=== PATIENT | male | born 1970 | race Caucasian/White ===

== ENCOUNTER 2021-02-13 15:06 | Inpatient (IN) | payer MEDICAID ==
[~2021-02-13] VITALS: Ht 172.7 cm; Wt 69.7 kg
[~2021-02-13 15:06] MED LIST: FLUO-191 PO; OLAN5TAB2 PO
[2021-02-13 20:50] VITALS: BP 107/72
[2021-02-13] MEDS ORDERED: HALOPERIDOL 5 MG TABLET PO PRN (21:30)
[2021-02-14 05:30] VITALS: BP 103/64
[2021-02-14 05:38] LABS: BASOPHILS % (AUTO) 0.4 % (0.0-2.0); EOSINOPHILS % (AUTO) 0.8 % (1.0-6.0); HEMATOCRIT 43.5 % (41-53); HEMOGLOBIN 14.7 g/dL (13.5-17.5); LYMPHOCYTES # (AUTO) 1.1 K/uL (1.0-4.8); LYMPHOCYTES % (AUTO) 15.7 % (22.0-44.0); MEAN CORPUSCULAR HEMOGLOBIN 31.6 pg (26.0-34.0); MEAN CORPUSCULAR HGB CONC 33.7 G/dL (31.0-37.0); MEAN CORPUSCULAR VOLUME 94 fL (80-100); MONOCYTES # (AUTO) 0.4 K/uL (0.1-1.0); MONOCYTES % (AUTO) 5.5 % (2.0-9.0); NEUTROPHILS # (AUTO) 5.5 K/uL (1.8-7.7); NEUTROPHILS % (AUTO) 77.6 % (40.0-70.0); PLATELET COUNT (AUTO) 227 K/uL (150-450); RED BLOOD CELL COUNT(AUTO) 4.63 MIL/uL (4.50-5.90); RED CELL DISTRIBUTION WIDTH 13.5 % (11.5-14.5)
[2021-02-14 06:17] LABS: ANION GAP 12 mmol/L (8-16); CALCIUM, TOTAL 8.4 mg/dL (8.8-10.5); CARBON DIOXIDE 22 mmol/L (22-29); CHLORIDE 102 mmol/L (98-107); CHOL/HDL RATIO 2.8 (4.2-7.3); CHOLESTEROL 138 mg/dL (131-200); CREATININE 0.94 mg/dL (0.60-1.30); GLOMERULAR FILTR. RATE CALC > 60 mL/min (>60); GLUCOSE,RANDOM 93 mg/dL (70-110); HDL CHOLESTEROL 50 mg/dL (40-60); LDL CHOL (CALC.) 77 mg/dL (0-130); POTASSIUM 3.4 mmol/L (3.5-5.1); SODIUM SERUM 136 mmol/L (136-145); THYROID STIMULATING HORMONE 0.77 uIU/mL (0.36-3.74); TRIGLYCERIDES 55 mg/dL (15-150); UREA NITROGEN, BLOOD 9 mg/dL (7-18); URIC ACID 7.2 mg/dL (2.6-7.2)
[2021-02-14] MEDS: GABAPENTIN 300 MG CAPSULE PO SCH ×2 (09:14→16:23)
[2021-02-14] MEDS: OLANZapine 5 MG TABLET PO SCH ×2 (09:14→16:23)
[2021-02-14] MEDS ORDERED: POTASSIUM CHLORIDE 20 MEQ ER TABLET PO ONE (09:15)
[2021-02-14] MEDS: NICOTINE 14 MG/24 HOUR PATCH TD SCH (09:19)
[2021-02-14 09:57] VITALS: BP 101/67
[2021-02-14 16:00] VITALS: BP 112/72
[2021-02-15 06:42] VITALS: BP 112/78
[2021-02-15] MEDS: NICOTINE 14 MG/24 HOUR PATCH TD SCH (08:31)
[2021-02-15 08:32] VITALS: BP 111/74
[2021-02-15] MEDS: OLANZapine 5 MG TABLET PO SCH ×2 (08:35→16:39)
[2021-02-15] MEDS: GABAPENTIN 300 MG CAPSULE PO SCH ×2 (08:35→16:39)
[2021-02-15] MEDS: BuPROPion HCL XL 150 MG ER TABLET PO SCH (11:03)
[2021-02-15 16:00] VITALS: BP 121/78
[2021-02-16 08:51] VITALS: BP 123/61
[2021-02-16] MEDS: GABAPENTIN 300 MG CAPSULE PO SCH ×2 (09:00→17:04)
[2021-02-16] MEDS: OLANZapine 5 MG TABLET PO SCH ×2 (09:00→17:04)
[2021-02-16] MEDS: BuPROPion HCL XL 150 MG ER TABLET PO SCH (09:00)
[2021-02-16] MEDS: NICOTINE 14 MG/24 HOUR PATCH TD SCH (09:08)
[2021-02-16 16:12] VITALS: BP 106/71
[2021-02-17] MEDS: OLANZapine 5 MG TABLET PO SCH ×2 (09:20→16:31)
[2021-02-17] MEDS: BuPROPion HCL XL 150 MG ER TABLET PO SCH (09:20)
[2021-02-17] MEDS: GABAPENTIN 300 MG CAPSULE PO SCH ×2 (09:20→16:31)
[2021-02-17] MEDS: NICOTINE 14 MG/24 HOUR PATCH TD SCH (09:26)
[2021-02-17 10:36] VITALS: BP 92/50
[2021-02-17 16:56] VITALS: BP 104/60
[2021-02-18] MEDS: GABAPENTIN 300 MG CAPSULE PO SCH ×2 (08:45→17:00)
[2021-02-18] MEDS: OLANZapine 5 MG TABLET PO SCH (08:45)
[2021-02-18] MEDS: BuPROPion HCL XL 150 MG ER TABLET PO SCH (08:45)
[2021-02-18] MEDS: NICOTINE 14 MG/24 HOUR PATCH TD SCH (09:00)
[2021-02-18 09:26] VITALS: BP 118/79
[2021-02-18 16:25] VITALS: BP 118/91
[2021-02-18] MEDS: OLANZapine 10 MG TABLET PO SCH (17:00)
[2021-02-19] MEDS: OLANZapine 10 MG TABLET PO SCH ×2 (09:12→16:30)
[2021-02-19] MEDS: BuPROPion HCL XL 150 MG ER TABLET PO SCH (09:12)
[2021-02-19] MEDS: NICOTINE 14 MG/24 HOUR PATCH TD SCH (09:13)
[2021-02-19] MEDS: GABAPENTIN 300 MG CAPSULE PO SCH ×2 (09:17→16:30)
[2021-02-19 10:40] VITALS: BP 132/90
[2021-02-19 16:00] VITALS: BP 99/78
[2021-02-20] MEDS: OLANZapine 10 MG TABLET PO SCH ×2 (09:00→16:28)
[2021-02-20] MEDS: NICOTINE 14 MG/24 HOUR PATCH TD SCH (09:00)
[2021-02-20] MEDS: BuPROPion HCL XL 150 MG ER TABLET PO SCH (09:00)
[2021-02-20] MEDS: GABAPENTIN 300 MG CAPSULE PO SCH ×2 (09:00→16:28)
[2021-02-20 10:22] VITALS: BP 104/64
[2021-02-20 15:04] LABS: COVID AG,FIA SOURCE NASOPHARYNGEAL
[2021-02-20 16:07] VITALS: BP 113/74
[2021-02-20 16:08] VITALS: BP 113/74
[2021-02-21] MEDS: NICOTINE 14 MG/24 HOUR PATCH TD SCH (09:00)
[2021-02-21 09:33] VITALS: BP 92/55
[2021-02-21] MEDS: OLANZapine 10 MG TABLET PO SCH ×2 (09:45→17:18)
[2021-02-21] MEDS: GABAPENTIN 300 MG CAPSULE PO SCH ×2 (09:45→17:18)
[2021-02-21] MEDS: BuPROPion HCL XL 150 MG ER TABLET PO SCH (09:45)
[2021-02-22] MEDS: BuPROPion HCL XL 150 MG ER TABLET PO SCH (08:45)
[2021-02-22] MEDS: GABAPENTIN 300 MG CAPSULE PO SCH ×2 (08:45→16:32)
[2021-02-22] MEDS: OLANZapine 10 MG TABLET PO SCH ×2 (08:45→16:32)
[2021-02-22 08:53] VITALS: BP 102/75
[2021-02-22] MEDS: NICOTINE 14 MG/24 HOUR PATCH TD SCH (09:00)
[2021-02-23] MEDS: BuPROPion HCL XL 150 MG ER TABLET PO SCH (08:39)
[2021-02-23] MEDS: GABAPENTIN 300 MG CAPSULE PO SCH ×2 (08:39→16:26)
[2021-02-23] MEDS: OLANZapine 10 MG TABLET PO SCH ×2 (08:39→16:26)
[2021-02-23] MEDS: NICOTINE 14 MG/24 HOUR PATCH TD SCH (08:43)
[2021-02-23 09:35] VITALS: BP 85/50
[2021-02-23 16:45] VITALS: BP 120/68
[2021-02-24 03:57] VITALS: BP 124/80
[2021-02-24] MEDS ORDERED: NICOTINE 14 MG/24 HOUR PATCH TD PRN (07:45)
[2021-02-24] MEDS: GABAPENTIN 300 MG CAPSULE PO SCH ×2 (08:11→16:34)
[2021-02-24] MEDS: OLANZapine 10 MG TABLET PO SCH ×2 (08:11→16:34)
[2021-02-24] MEDS: BuPROPion HCL XL 150 MG ER TABLET PO SCH (08:11)
[2021-02-24 09:40] VITALS: BP 109/72
[2021-02-24 16:00] VITALS: BP 99/66
[2021-02-25 00:52] VITALS: BP 110/77
[2021-02-25] MEDS: BuPROPion HCL XL 150 MG ER TABLET PO SCH (08:40)
[2021-02-25] MEDS: GABAPENTIN 300 MG CAPSULE PO SCH ×2 (08:40→16:14)
[2021-02-25] MEDS: OLANZapine 10 MG TABLET PO SCH ×2 (08:40→16:14)
[2021-02-25 09:16] VITALS: BP 95/59
[2021-02-25 17:54] VITALS: BP 101/68
[2021-02-26] MEDS: GABAPENTIN 300 MG CAPSULE PO SCH ×2 (08:27→16:28)
[2021-02-26] MEDS: BuPROPion HCL XL 150 MG ER TABLET PO SCH (08:27)
[2021-02-26] MEDS: OLANZapine 10 MG TABLET PO SCH ×2 (08:27→16:29)
[2021-02-26 08:45] VITALS: BP 102/72
[2021-02-26 16:24] VITALS: BP 113/76
[2021-02-27] MEDS: GABAPENTIN 300 MG CAPSULE PO SCH ×2 (09:05→17:28)
[2021-02-27] MEDS: BuPROPion HCL XL 150 MG ER TABLET PO SCH (09:05)
[2021-02-27] MEDS: OLANZapine 10 MG TABLET PO SCH ×2 (09:06→17:28)
[2021-02-27 12:42] VITALS: BP 111/74
[2021-02-27 16:00] VITALS: BP 112/77
[2021-02-27 22:09] LABS: COVID AG,FIA SOURCE NASOPHARYNGEAL
[2021-02-28] MEDS: BuPROPion HCL XL 150 MG ER TABLET PO SCH (10:10)
[2021-02-28] MEDS: GABAPENTIN 300 MG CAPSULE PO SCH ×2 (10:10→16:51)
[2021-02-28] MEDS: OLANZapine 10 MG TABLET PO SCH ×2 (10:10→16:51)
[2021-02-28 10:32] VITALS: BP 118/77
[2021-03-01] MEDS: BuPROPion HCL XL 150 MG ER TABLET PO SCH (08:20)
[2021-03-01] MEDS: OLANZapine 10 MG TABLET PO SCH ×2 (08:20→16:58)
[2021-03-01] MEDS: GABAPENTIN 300 MG CAPSULE PO SCH ×2 (08:20→16:58)
[2021-03-01 10:07] VITALS: BP 107/71
[2021-03-02 08:26] VITALS: BP 116/87
[2021-03-02] MEDS: OLANZapine 10 MG TABLET PO SCH ×2 (09:30→16:20)
[2021-03-02] MEDS: BuPROPion HCL XL 150 MG ER TABLET PO SCH (09:30)
[2021-03-02] MEDS: GABAPENTIN 300 MG CAPSULE PO SCH ×2 (09:30→16:20)
[2021-03-02 16:10] VITALS: BP 101/76
[2021-03-03 07:59] VITALS: BP 102/66
[2021-03-03 08:00] VITALS: BP 102/66
[2021-03-03] MEDS: GABAPENTIN 300 MG CAPSULE PO SCH ×2 (08:04→19:30)
[2021-03-03] MEDS: BuPROPion HCL XL 150 MG ER TABLET PO SCH (08:04)
[2021-03-03] MEDS: OLANZapine 10 MG TABLET PO SCH ×2 (08:04→19:29)
[2021-03-03 16:17] VITALS: BP 110/60
[2021-03-04 08:00] VITALS: BP 91/56
[2021-03-04] MEDS: OLANZapine 10 MG TABLET PO SCH ×2 (10:04→16:31)
[2021-03-04] MEDS: BuPROPion HCL XL 150 MG ER TABLET PO SCH (10:04)
[2021-03-04] MEDS: GABAPENTIN 300 MG CAPSULE PO SCH ×2 (10:05→16:31)
[2021-03-04 16:00] VITALS: BP 115/71
[2021-03-04] MEDS: ZOLPIDEM TARTRATE 10 MG TABLET PO PRN (20:13)
[2021-03-05 08:36] VITALS: BP 112/71
[2021-03-05] MEDS: OLANZapine 10 MG TABLET PO SCH ×2 (10:06→16:04)
[2021-03-05] MEDS: GABAPENTIN 300 MG CAPSULE PO SCH ×2 (10:06→16:04)
[2021-03-05] MEDS: BuPROPion HCL XL 150 MG ER TABLET PO SCH (10:06)
[2021-03-05 16:00] VITALS: BP 103/67
[2021-03-05] MEDS: ZOLPIDEM TARTRATE 10 MG TABLET PO PRN (20:13)
[2021-03-06 02:38] VITALS: BP 105/68
[2021-03-06] MEDS: GABAPENTIN 300 MG CAPSULE PO SCH ×2 (08:32→16:18)
[2021-03-06] MEDS: BuPROPion HCL XL 150 MG ER TABLET PO SCH (08:32)
[2021-03-06] MEDS: OLANZapine 10 MG TABLET PO SCH ×2 (08:32→16:18)
[2021-03-06 08:36] VITALS: BP 122/84
[2021-03-06 15:44] LABS: COVID AG,FIA SOURCE NASOPHARYNGEAL
[2021-03-06 17:00] VITALS: BP 106/73
[2021-03-06] MEDS: LORazepam 2 MG TABLET PO PRN (18:32)
[2021-03-07 09:14] VITALS: BP 93/58
[2021-03-07] MEDS: OLANZapine 10 MG TABLET PO SCH ×2 (10:08→16:58)
[2021-03-07] MEDS: GABAPENTIN 300 MG CAPSULE PO SCH ×2 (10:08→16:58)
[2021-03-07] MEDS: BuPROPion HCL XL 150 MG ER TABLET PO SCH (10:08)
[2021-03-07 16:25] VITALS: BP 103/70
[2021-03-07] MEDS: LORazepam 2 MG TABLET PO PRN (19:29)
[2021-03-08 08:38] VITALS: BP 100/59
[2021-03-08] MEDS: GABAPENTIN 300 MG CAPSULE PO SCH ×2 (08:56→16:14)
[2021-03-08] MEDS: BuPROPion HCL XL 150 MG ER TABLET PO SCH (08:56)
[2021-03-08] MEDS: OLANZapine 10 MG TABLET PO SCH ×2 (08:56→16:14)
[2021-03-08 16:03] VITALS: BP 119/69
[2021-03-09 08:00] VITALS: BP 117/67
[2021-03-09] MEDS: GABAPENTIN 300 MG CAPSULE PO SCH ×2 (08:28→16:43)
[2021-03-09] MEDS: OLANZapine 10 MG TABLET PO SCH ×2 (08:28→16:43)
[2021-03-09] MEDS: BuPROPion HCL XL 150 MG ER TABLET PO SCH (08:28)
[2021-03-09 16:06] VITALS: BP 110/65
[2021-03-10 08:33] VITALS: BP 101/68
[2021-03-10] MEDS: BuPROPion HCL XL 150 MG ER TABLET PO SCH (08:56)
[2021-03-10] MEDS: OLANZapine 10 MG TABLET PO SCH ×2 (08:56→16:15)
[2021-03-10] MEDS: GABAPENTIN 300 MG CAPSULE PO SCH ×2 (08:56→16:15)
[2021-03-10 16:00] VITALS: BP 114/74
[2021-03-11 04:02] VITALS: BP 88/56
[2021-03-11 07:06] VITALS: BP 101/66
[2021-03-11 08:33] VITALS: BP 101/69
[2021-03-11] MEDS: OLANZapine 10 MG TABLET PO SCH ×2 (09:27→16:30)
[2021-03-11] MEDS: GABAPENTIN 300 MG CAPSULE PO SCH ×2 (09:27→16:30)
[2021-03-11] MEDS: BuPROPion HCL XL 150 MG ER TABLET PO SCH (09:27)
[2021-03-11 16:09] VITALS: BP 104/70
[2021-03-12 05:03] VITALS: BP 93/62
[2021-03-12 06:04] LABS: GLUCOMETER DEV NAME(LOC) 3E.I 2; GLUCOSE,POINT OF CARE 107 MG/DL (70-110)
[2021-03-12 08:22] VITALS: BP 101/74
[2021-03-12] MEDS: BuPROPion HCL XL 150 MG ER TABLET PO SCH (08:39)
[2021-03-12] MEDS: OLANZapine 10 MG TABLET PO SCH (08:47)
[2021-03-12] MEDS: GABAPENTIN 300 MG CAPSULE PO SCH (08:47)
[2021-03-12] MEDS ORDERED: BUPR-93 PO (10:18)
[2021-03-12] MEDS ORDERED: GABA-1181 PO (10:19)
[2021-03-12] MEDS ORDERED: OLAN10TA3 PO (10:19)
== END 2021-03-12 12:00 | disposition home or self-care (01) | DRG 750 ==
LOC: 3EI 20:35
PROVIDERS: ADMIT Psychiatry & Neurology Psychiatry; ATTEND Psychiatry & Neurology Psychiatry
DX: F20.0 Paranoid schizophrenia (principal); I95.9 Hypotension, unspecified; E83.51 Hypocalcemia; K51.90 Ulcerative colitis, unspecified, without complications; F10.10 Alcohol abuse, uncomplicated; F41.1 Generalized anxiety disorder; Y90.9 Presence of alcohol in blood, level not specified; F43.20 Adjustment disorder, unspecified; F15.10 Other stimulant abuse, uncomplicated; E87.6 Hypokalemia; F32.9 Major depressive disorder, single episode, unspecified
CPT/HCPCS: 80048; 80061; 82962; 84132; 84443; 84550; 85025; 87426

== ENCOUNTER 2021-05-13 12:52 | Inpatient (IN) | payer MEDICAID ==
[~2021-05-13] VITALS: Ht 172.7 cm; Wt 68.5 kg
[~2021-05-13 12:52] MED LIST changes: +BUPR-93 PO; -FLUO-191 PO; +GABA-1181 PO; +OLAN10TA74 PO; -OLAN5TAB2 PO
[2021-05-13] MEDS ORDERED: HEPA500018 SQ (15:20)
[2021-05-13] MEDS ORDERED: MELA5TAB3 PO (15:21)
[2021-05-13] MEDS ORDERED: NALT50TA6 PO (15:21)
[2021-05-13] MEDS ORDERED: OLAN5TAB94 PO (15:22)
[2021-05-13] MEDS ORDERED: OMEG-135 PO (15:23)
[2021-05-13 18:26] VITALS: BP 129/68
[2021-05-13] MEDS ORDERED: GuaiFENesin/D-METHORPHAN [SUGAR-FREE] 200-20MG/10 ML SYRUP UDCUP PO PRN (20:15)
[2021-05-13] MEDS ORDERED: OLANZapine 10 MG RAPDIS TABLET PO ONE (20:15)
[2021-05-13] MEDS ORDERED: OLANZapine 5 MG RAPDIS TABLET PO PRN (20:15)
[2021-05-13] MEDS ORDERED: TUBERCULIN, PURIFIED PROTEIN DERIVATIVE 5 TU/0.1 ML SYRINGE ID ONE (20:15)
[2021-05-13] MEDS ORDERED: PROMETHAZINE HCL 25 MG TABLET PO PRN (20:15)
[2021-05-13] MEDS ORDERED: ZOLPIDEM TARTRATE 10 MG TABLET PO PRN (20:15)
[2021-05-13] MEDS ORDERED: HydrOXYzine PAMOATE 50 MG CAPSULE PO PRN (20:15)
[2021-05-13] MEDS: GABAPENTIN 300 MG CAPSULE PO SCH (21:44)
[2021-05-13] MEDS: MELATONIN 5 MG TABLET PO SCH (21:44)
[2021-05-14 06:18] LABS: BASOPHILS % (AUTO) 0.7 % (0.0-2.0); EOSINOPHILS % (AUTO) 3.2 % (1.0-6.0); HEMOGLOBIN 12.3 g/dL (13.5-17.5); LYMPHOCYTES # (AUTO) 1.7 K/uL (1.0-4.8); LYMPHOCYTES % (AUTO) 37.7 % (22.0-44.0); MEAN CORPUSCULAR HEMOGLOBIN 30.9 pg (26.0-34.0); MEAN CORPUSCULAR HGB CONC 33.3 G/dL (31.0-37.0); MEAN CORPUSCULAR VOLUME 93 fL (80-100); MONOCYTES # (AUTO) 0.5 K/uL (0.1-1.0); MONOCYTES % (AUTO) 10.4 % (2.0-9.0); NEUTROPHILS # (AUTO) 2.2 K/uL (1.8-7.7); PLATELET COUNT (AUTO) 235 K/uL (150-450); RED BLOOD CELL COUNT(AUTO) 3.99 MIL/uL (4.50-5.90); RED CELL DISTRIBUTION WIDTH 13.1 % (11.5-14.5)
[2021-05-14 06:46] LABS: ALANINE AMINOTRANSFERASE 18 U/L (12-78); ALBUMIN 2.7 g/dL (3.4-5.0); ALKALINE PHOSPHATASE 92 U/L (46-116); ANION GAP 3 mmol/L (8-16); ASPARTATE AMINOTRANSFERASE 13 U/L (15-37); BILIRUBIN,TOTAL 0.2 mg/dL (0.1-1.0); CALCIUM, TOTAL 8.5 mg/dL (8.8-10.5); CARBON DIOXIDE 33 mmol/L (22-29); CHLORIDE 102 mmol/L (98-107); CHOL/HDL RATIO 3.5 (4.2-7.3); CHOLESTEROL 164 mg/dL (131-200); CREATININE 0.72 mg/dL (0.60-1.30); FREE T4 (FREE THYROXINE) 0.89 ng/dL (0.76-1.46); GLOMERULAR FILTR. RATE CALC > 60 mL/min (>60); GLUCOSE,RANDOM 95 mg/dL (70-110); HDL CHOLESTEROL 47 mg/dL (40-60); LDL CHOL (CALC.) 101 mg/dL (0-130); POTASSIUM 4.4 mmol/L (3.5-5.1); SODIUM SERUM 138 mmol/L (136-145); THYROID STIMULATING HORMONE 1.78 uIU/mL (0.36-3.74); TOTAL PROTEIN, SERUM 6.9 g/dL (6.4-8.2); TRIGLYCERIDES 79 mg/dL (15-150); UREA NITROGEN, BLOOD 13 mg/dL (7-18)
[2021-05-14 07:02] LABS: HEMOGLOBIN A1C 5.1 % (3.8-5.6)
[2021-05-14 08:39] VITALS: BP 114/81
[2021-05-14] MEDS: THIAMINE 100 MG TABLET PO SCH ×2 (09:00→16:10)
[2021-05-14] MEDS: OMEGA-3/DHA/EPA/FISH OIL 1,000 MG CAPSULE PO SCH (09:00)
[2021-05-14] MEDS: MULTIVITAMINS WITH MINERALS, THERAPEUTIC TABLET PO SCH (09:00)
[2021-05-14] MEDS: NALTREXONE HCL 50 MG TABLET PO SCH (09:01)
[2021-05-14] MEDS: FOLIC ACID 1 MG TABLET PO SCH (09:01)
[2021-05-14] MEDS: BuPROPion HCL XL 150 MG ER TABLET PO SCH (09:01)
[2021-05-14] MEDS: GABAPENTIN 300 MG CAPSULE PO SCH ×4 (09:01→20:17)
[2021-05-14 16:19] VITALS: BP 118/78
[2021-05-14] MEDS: OLANZapine 10 MG RAPDIS TABLET PO SCH (20:17)
[2021-05-14] MEDS: MELATONIN 5 MG TABLET PO SCH (20:17)
[2021-05-15] MEDS: THIAMINE 100 MG TABLET PO SCH ×2 (08:39→16:52)
[2021-05-15] MEDS: FOLIC ACID 1 MG TABLET PO SCH (08:39)
[2021-05-15] MEDS: GABAPENTIN 300 MG CAPSULE PO SCH ×4 (08:39→20:43)
[2021-05-15] MEDS: OMEGA-3/DHA/EPA/FISH OIL 1,000 MG CAPSULE PO SCH (08:39)
[2021-05-15] MEDS: BuPROPion HCL XL 150 MG ER TABLET PO SCH (08:39)
[2021-05-15] MEDS: MULTIVITAMINS WITH MINERALS, THERAPEUTIC TABLET PO SCH (08:39)
[2021-05-15] MEDS: NALTREXONE HCL 50 MG TABLET PO SCH (08:39)
[2021-05-15] MEDS: NICOTINE 14 MG/24 HOUR PATCH TD SCH (08:40)
[2021-05-15 08:48] VITALS: BP 105/73
[2021-05-15 16:33] VITALS: BP 113/73
[2021-05-15] MEDS: MUPIROCIN CALCIUM 2% 22 GM OINTMENT NASAL SCH (16:51)
[2021-05-15] MEDS: OLANZapine 10 MG RAPDIS TABLET PO SCH (20:43)
[2021-05-15] MEDS: MELATONIN 5 MG TABLET PO SCH (20:43)
[2021-05-16 00:12] VITALS: BP 111/69
[2021-05-16] MEDS: LORazepam 2 MG TABLET PO PRN (00:18)
[2021-05-16 08:38] VITALS: BP 111/70
[2021-05-16] MEDS: MUPIROCIN CALCIUM 2% 22 GM OINTMENT NASAL SCH ×2 (09:17→16:37)
[2021-05-16] MEDS: THIAMINE 100 MG TABLET PO SCH ×2 (09:17→16:37)
[2021-05-16] MEDS: OMEGA-3/DHA/EPA/FISH OIL 1,000 MG CAPSULE PO SCH (09:17)
[2021-05-16] MEDS: GABAPENTIN 300 MG CAPSULE PO SCH ×3 (09:17→16:36)
[2021-05-16] MEDS: NALTREXONE HCL 50 MG TABLET PO SCH (09:17)
[2021-05-16] MEDS: MULTIVITAMINS WITH MINERALS, THERAPEUTIC TABLET PO SCH (09:17)
[2021-05-16] MEDS: FOLIC ACID 1 MG TABLET PO SCH (09:17)
[2021-05-16] MEDS: BuPROPion HCL XL 150 MG ER TABLET PO SCH (09:17)
[2021-05-16] MEDS: NICOTINE 14 MG/24 HOUR PATCH TD SCH (09:28)
[2021-05-16 16:24] VITALS: BP 107/68
[2021-05-16] MEDS: OLANZapine 10 MG RAPDIS TABLET PO SCH (20:28)
[2021-05-16] MEDS: MELATONIN 5 MG TABLET PO SCH (20:28)
[2021-05-16] MEDS: GABAPENTIN 400 MG CAPSULE PO SCH (21:37)
[2021-05-17 08:00] VITALS: BP 99/63
[2021-05-17] MEDS: NICOTINE 14 MG/24 HOUR PATCH TD SCH ×2 (09:00→10:17)
[2021-05-17] MEDS: MULTIVITAMINS WITH MINERALS, THERAPEUTIC TABLET PO SCH (10:14)
[2021-05-17] MEDS: NALTREXONE HCL 50 MG TABLET PO SCH (10:14)
[2021-05-17] MEDS: OMEGA-3/DHA/EPA/FISH OIL 1,000 MG CAPSULE PO SCH (10:15)
[2021-05-17] MEDS: FOLIC ACID 1 MG TABLET PO SCH (10:15)
[2021-05-17] MEDS: THIAMINE 100 MG TABLET PO SCH ×2 (10:15→16:15)
[2021-05-17] MEDS: GABAPENTIN 400 MG CAPSULE PO SCH ×4 (10:15→20:38)
[2021-05-17] MEDS: BuPROPion HCL XL 150 MG ER TABLET PO SCH (10:16)
[2021-05-17] MEDS: MUPIROCIN CALCIUM 2% 22 GM OINTMENT NASAL SCH ×2 (10:16→16:15)
[2021-05-17] MEDS: OLANZapine 10 MG RAPDIS TABLET PO SCH (20:28)
[2021-05-17] MEDS: MELATONIN 5 MG TABLET PO SCH (20:28)
[2021-05-18 08:20] VITALS: BP 106/64
[2021-05-18] MEDS: FOLIC ACID 1 MG TABLET PO SCH (09:42)
[2021-05-18] MEDS: MULTIVITAMINS WITH MINERALS, THERAPEUTIC TABLET PO SCH (09:42)
[2021-05-18] MEDS: GABAPENTIN 400 MG CAPSULE PO SCH ×4 (09:42→20:11)
[2021-05-18] MEDS: THIAMINE 100 MG TABLET PO SCH ×2 (09:42→16:20)
[2021-05-18] MEDS: NALTREXONE HCL 50 MG TABLET PO SCH (09:42)
[2021-05-18] MEDS: OMEGA-3/DHA/EPA/FISH OIL 1,000 MG CAPSULE PO SCH (09:42)
[2021-05-18] MEDS: MUPIROCIN CALCIUM 2% 22 GM OINTMENT NASAL SCH ×2 (09:43→16:20)
[2021-05-18] MEDS: NICOTINE 14 MG/24 HOUR PATCH TD SCH (09:43)
[2021-05-18] MEDS: BuPROPion HCL XL 150 MG ER TABLET PO SCH (09:44)
[2021-05-18 16:09] VITALS: BP 104/64
[2021-05-18] MEDS: MELATONIN 5 MG TABLET PO SCH (20:11)
[2021-05-18] MEDS: OLANZapine 10 MG RAPDIS TABLET PO SCH (20:11)
[2021-05-19 00:25] VITALS: BP 106/72
[2021-05-19 08:35] VITALS: BP 95/56
[2021-05-19] MEDS: MULTIVITAMINS WITH MINERALS, THERAPEUTIC TABLET PO SCH (08:36)
[2021-05-19] MEDS: NALTREXONE HCL 50 MG TABLET PO SCH (08:36)
[2021-05-19] MEDS: FOLIC ACID 1 MG TABLET PO SCH (08:36)
[2021-05-19] MEDS: BuPROPion HCL XL 150 MG ER TABLET PO SCH (08:36)
[2021-05-19] MEDS: GABAPENTIN 400 MG CAPSULE PO SCH ×3 (08:36→16:20)
[2021-05-19] MEDS: MUPIROCIN CALCIUM 2% 22 GM OINTMENT NASAL SCH ×2 (08:36→16:20)
[2021-05-19] MEDS: OMEGA-3/DHA/EPA/FISH OIL 1,000 MG CAPSULE PO SCH (08:36)
[2021-05-19] MEDS: THIAMINE 100 MG TABLET PO SCH ×2 (08:36→16:20)
[2021-05-19] MEDS: NICOTINE 14 MG/24 HOUR PATCH TD SCH (08:44)
[2021-05-19 15:17] LABS: COVID AG,FIA SOURCE NASOPHARYNGEAL
[2021-05-19 16:00] VITALS: BP 104/60
[2021-05-19] MEDS: MELATONIN 5 MG TABLET PO SCH (20:18)
[2021-05-19] MEDS: OLANZapine 10 MG RAPDIS TABLET PO SCH (20:18)
[2021-05-19] MEDS: GABAPENTIN 300 MG CAPSULE PO SCH (20:19)
[2021-05-20] MEDS: GABAPENTIN 300 MG CAPSULE PO SCH ×4 (08:44→20:52)
[2021-05-20] MEDS: OMEGA-3/DHA/EPA/FISH OIL 1,000 MG CAPSULE PO SCH (08:44)
[2021-05-20] MEDS: THIAMINE 100 MG TABLET PO SCH ×2 (08:44→16:46)
[2021-05-20] MEDS: FOLIC ACID 1 MG TABLET PO SCH (08:46)
[2021-05-20] MEDS: NALTREXONE HCL 50 MG TABLET PO SCH (08:47)
[2021-05-20] MEDS: BuPROPion HCL XL 150 MG ER TABLET PO SCH (08:47)
[2021-05-20] MEDS: MULTIVITAMINS WITH MINERALS, THERAPEUTIC TABLET PO SCH (08:48)
[2021-05-20] MEDS: MUPIROCIN CALCIUM 2% 22 GM OINTMENT NASAL SCH (08:56)
[2021-05-20] MEDS: NICOTINE 14 MG/24 HOUR PATCH TD SCH (08:56)
[2021-05-20 09:19] VITALS: BP 105/72
[2021-05-20 16:00] VITALS: BP 149/96
[2021-05-20] MEDS ORDERED: DIVALPROEX SODIUM 500 MG ER TABLET PO ONE (18:45)
[2021-05-20] MEDS: OLANZapine 10 MG RAPDIS TABLET PO SCH (20:52)
[2021-05-20] MEDS: MELATONIN 5 MG TABLET PO SCH (20:53)
[2021-05-21 08:00] VITALS: BP 103/64
[2021-05-21] MEDS: FOLIC ACID 1 MG TABLET PO SCH (08:29)
[2021-05-21] MEDS: NICOTINE 14 MG/24 HOUR PATCH TD SCH (08:29)
[2021-05-21] MEDS: NALTREXONE HCL 50 MG TABLET PO SCH (08:29)
[2021-05-21] MEDS: THIAMINE 100 MG TABLET PO SCH ×2 (08:29→16:32)
[2021-05-21] MEDS: OMEGA-3/DHA/EPA/FISH OIL 1,000 MG CAPSULE PO SCH (08:29)
[2021-05-21] MEDS: MULTIVITAMINS WITH MINERALS, THERAPEUTIC TABLET PO SCH (08:29)
[2021-05-21] MEDS: GABAPENTIN 300 MG CAPSULE PO SCH ×4 (08:29→20:04)
[2021-05-21] MEDS: BuPROPion HCL XL 150 MG ER TABLET PO SCH (08:30)
[2021-05-21 16:00] VITALS: BP 103/73
[2021-05-21 16:41] VITALS: BP 103/73
[2021-05-21] MEDS: MELATONIN 5 MG TABLET PO SCH (20:04)
[2021-05-21] MEDS: DIVALPROEX SODIUM 500 MG ER TABLET PO SCH (20:04)
[2021-05-21] MEDS: OLANZapine 10 MG RAPDIS TABLET PO SCH (20:04)
[2021-05-22 03:42] VITALS: BP 106/66
[2021-05-22] MEDS: THIAMINE 100 MG TABLET PO SCH ×2 (09:15→16:22)
[2021-05-22] MEDS: MULTIVITAMINS WITH MINERALS, THERAPEUTIC TABLET PO SCH (09:15)
[2021-05-22 09:18] VITALS: BP 158/75
[2021-05-22] MEDS: BuPROPion HCL XL 150 MG ER TABLET PO SCH (09:18)
[2021-05-22] MEDS: FOLIC ACID 1 MG TABLET PO SCH (09:18)
[2021-05-22] MEDS: OMEGA-3/DHA/EPA/FISH OIL 1,000 MG CAPSULE PO SCH (09:18)
[2021-05-22] MEDS: NALTREXONE HCL 50 MG TABLET PO SCH (09:18)
[2021-05-22] MEDS: GABAPENTIN 300 MG CAPSULE PO SCH ×4 (09:18→20:17)
[2021-05-22] MEDS: NICOTINE 14 MG/24 HOUR PATCH TD SCH (09:23)
[2021-05-22 16:14] VITALS: BP 95/57
[2021-05-22] MEDS ORDERED: HALOPERIDOL 10 MG TABLET PO ONE (20:15)
[2021-05-22] MEDS: MELATONIN 5 MG TABLET PO SCH (20:17)
[2021-05-22] MEDS: OLANZapine 10 MG RAPDIS TABLET PO SCH (20:18)
[2021-05-22] MEDS: DIVALPROEX SODIUM 500 MG ER TABLET PO SCH (20:18)
[2021-05-22 20:41] LABS: APPEARANCE,URINE CLEAR (CLEAR); BILIRUBIN,URINE NEGATIVE (NEGATIVE); GLUCOSE, URINE (UA) NEGATIVE (NEGATIVE); KETONES,URINE TRACE mg/dL (NEGATIVE); LEUKOCYTE ESTERASE ,URINE NEGATIVE (NEGATIVE); NITRATE,URINE NEGATIVE (NEGATIVE); OCCULT BLOOD,URINE NEGATIVE (NEGATIVE); PH,URINE 7.5 (5.0-8.0); PROTEIN,URINE NEGATIVE (NEGATIVE); UROBILINOGEN,URINE 0.2 mg/dL (<=1.0)
[2021-05-22 20:48] LABS: AMPHET/METH SCREEN,URINE NEGATIVE (NEGATIVE); BARBITURATE SCREEN, URINE NEGATIVE (NEGATIVE); BENZODIAZEPINES SCREEN,URINE NEGATIVE (NEGATIVE); CANNABINOID SCREEN,URINE NEGATIVE (NEGATIVE); COCAINE SCREEN,URINE NEGATIVE (NEGATIVE); METHADONE SCREEN, URINE NEGATIVE (NEGATIVE); OPIATE SCREEN,URINE NEGATIVE (NEGATIVE)
[2021-05-22 20:49] LABS: PHENCYCLIDINE SCREEN,URINE NEGATIVE (NEGATIVE)
[2021-05-22] MEDS ORDERED: HALOPERIDOL 10 MG TABLET PO SCH (21:00)
[2021-05-23 08:00] VITALS: BP 97/59
[2021-05-23] MEDS ORDERED: MODAFINIL 100 MG TABLET PO SCH (09:00)
[2021-05-23] MEDS: OMEGA-3/DHA/EPA/FISH OIL 1,000 MG CAPSULE PO SCH (10:19)
[2021-05-23] MEDS: GABAPENTIN 300 MG CAPSULE PO SCH ×4 (10:20→20:41)
[2021-05-23] MEDS: NALTREXONE HCL 50 MG TABLET PO SCH (10:20)
[2021-05-23] MEDS: BuPROPion HCL XL 150 MG ER TABLET PO SCH (10:20)
[2021-05-23] MEDS: FOLIC ACID 1 MG TABLET PO SCH (10:20)
[2021-05-23] MEDS: MULTIVITAMINS WITH MINERALS, THERAPEUTIC TABLET PO SCH (10:20)
[2021-05-23] MEDS: THIAMINE 100 MG TABLET PO SCH ×2 (10:20→16:58)
[2021-05-23] MEDS: NICOTINE 14 MG/24 HOUR PATCH TD SCH (10:26)
[2021-05-23 16:45] VITALS: BP 103/61
[2021-05-23 20:00] VITALS: BP 109/67
[2021-05-23] MEDS: HALOPERIDOL 10 MG TABLET PO SCH (20:41)
[2021-05-23] MEDS: OLANZapine 10 MG RAPDIS TABLET PO SCH (20:41)
[2021-05-23] MEDS: DIVALPROEX SODIUM 500 MG ER TABLET PO SCH (20:42)
[2021-05-23] MEDS: MELATONIN 5 MG TABLET PO SCH (20:52)
[2021-05-24 08:00] VITALS: BP 101/60
[2021-05-24] MEDS: NICOTINE 14 MG/24 HOUR PATCH TD SCH (09:00)
[2021-05-24] MEDS: GABAPENTIN 300 MG CAPSULE PO SCH ×4 (09:47→20:59)
[2021-05-24] MEDS: MULTIVITAMINS WITH MINERALS, THERAPEUTIC TABLET PO SCH (09:47)
[2021-05-24] MEDS: MODAFINIL 100 MG TABLET PO SCH (09:50)
[2021-05-24] MEDS: BuPROPion HCL XL 150 MG ER TABLET PO SCH (09:51)
[2021-05-24] MEDS: OMEGA-3/DHA/EPA/FISH OIL 1,000 MG CAPSULE PO SCH (09:51)
[2021-05-24] MEDS: NALTREXONE HCL 50 MG TABLET PO SCH (09:52)
[2021-05-24 16:00] VITALS: BP 111/67
[2021-05-24 20:00] VITALS: BP 107/68
[2021-05-24] MEDS: HALOPERIDOL 10 MG TABLET PO SCH (21:00)
[2021-05-24] MEDS: MELATONIN 5 MG TABLET PO SCH (21:00)
[2021-05-24] MEDS: OLANZapine 10 MG RAPDIS TABLET PO SCH (21:00)
[2021-05-24] MEDS: DIVALPROEX SODIUM 500 MG ER TABLET PO SCH (21:01)
[2021-05-25] MEDS: OMEGA-3/DHA/EPA/FISH OIL 1,000 MG CAPSULE PO SCH (08:21)
[2021-05-25] MEDS: NALTREXONE HCL 50 MG TABLET PO SCH (08:21)
[2021-05-25] MEDS: BuPROPion HCL XL 150 MG ER TABLET PO SCH (08:22)
[2021-05-25] MEDS: MODAFINIL 100 MG TABLET PO SCH (08:22)
[2021-05-25] MEDS: GABAPENTIN 300 MG CAPSULE PO SCH ×4 (08:22→21:07)
[2021-05-25] MEDS: MULTIVITAMINS WITH MINERALS, THERAPEUTIC TABLET PO SCH (08:22)
[2021-05-25 08:23] VITALS: BP 108/62
[2021-05-25] MEDS: NICOTINE 14 MG/24 HOUR PATCH TD SCH (08:23)
[2021-05-25 16:14] VITALS: BP 100/69
[2021-05-25] MEDS: OLANZapine 10 MG RAPDIS TABLET PO SCH (21:07)
[2021-05-25] MEDS: HALOPERIDOL 10 MG TABLET PO SCH (21:07)
[2021-05-25] MEDS: DIVALPROEX SODIUM 500 MG ER TABLET PO SCH (21:07)
[2021-05-25] MEDS: MELATONIN 5 MG TABLET PO SCH (21:07)
[2021-05-26] MEDS: MULTIVITAMINS WITH MINERALS, THERAPEUTIC TABLET PO SCH (08:12)
[2021-05-26] MEDS: MODAFINIL 100 MG TABLET PO SCH (08:12)
[2021-05-26] MEDS: NALTREXONE HCL 50 MG TABLET PO SCH (08:12)
[2021-05-26] MEDS: BuPROPion HCL XL 150 MG ER TABLET PO SCH (08:12)
[2021-05-26] MEDS: OMEGA-3/DHA/EPA/FISH OIL 1,000 MG CAPSULE PO SCH (08:12)
[2021-05-26] MEDS: GABAPENTIN 300 MG CAPSULE PO SCH ×4 (08:12→20:45)
[2021-05-26] MEDS: NICOTINE 14 MG/24 HOUR PATCH TD SCH (08:12)
[2021-05-26 10:30] VITALS: BP 93/61
[2021-05-26 15:20] LABS: COVID AG,FIA SOURCE NASAL SWAB
[2021-05-26 16:00] VITALS: BP 95/62
[2021-05-26] MEDS: OLANZapine 10 MG RAPDIS TABLET PO SCH (20:45)
[2021-05-26] MEDS: DIVALPROEX SODIUM 500 MG ER TABLET PO SCH (20:45)
[2021-05-26] MEDS: MELATONIN 5 MG TABLET PO SCH (20:46)
[2021-05-26] MEDS: HALOPERIDOL 10 MG TABLET PO SCH (20:46)
[2021-05-27] MEDS: NALTREXONE HCL 50 MG TABLET PO SCH (08:43)
[2021-05-27] MEDS: BuPROPion HCL XL 150 MG ER TABLET PO SCH (08:43)
[2021-05-27] MEDS: MULTIVITAMINS WITH MINERALS, THERAPEUTIC TABLET PO SCH (08:43)
[2021-05-27] MEDS: GABAPENTIN 300 MG CAPSULE PO SCH ×4 (08:44→20:26)
[2021-05-27] MEDS: MODAFINIL 100 MG TABLET PO SCH (08:44)
[2021-05-27] MEDS: OMEGA-3/DHA/EPA/FISH OIL 1,000 MG CAPSULE PO SCH (08:44)
[2021-05-27 08:45] VITALS: BP 111/80
[2021-05-27] MEDS: NICOTINE 14 MG/24 HOUR PATCH TD SCH (08:57)
[2021-05-27 16:39] VITALS: BP 98/60
[2021-05-27] MEDS: DIVALPROEX SODIUM 500 MG ER TABLET PO SCH (20:26)
[2021-05-27] MEDS: OLANZapine 10 MG RAPDIS TABLET PO SCH (20:26)
[2021-05-27] MEDS: MELATONIN 5 MG TABLET PO SCH (20:26)
[2021-05-27] MEDS: HALOPERIDOL 10 MG TABLET PO SCH (20:26)
[2021-05-28 08:00] VITALS: BP 93/60
[2021-05-28] MEDS: NICOTINE 14 MG/24 HOUR PATCH TD SCH (09:00)
[2021-05-28] MEDS: GABAPENTIN 300 MG CAPSULE PO SCH ×4 (09:34→20:26)
[2021-05-28] MEDS: OMEGA-3/DHA/EPA/FISH OIL 1,000 MG CAPSULE PO SCH (09:35)
[2021-05-28] MEDS: BuPROPion HCL XL 150 MG ER TABLET PO SCH (09:35)
[2021-05-28] MEDS: MULTIVITAMINS WITH MINERALS, THERAPEUTIC TABLET PO SCH (09:35)
[2021-05-28] MEDS: NALTREXONE HCL 50 MG TABLET PO SCH (09:35)
[2021-05-28] MEDS: MODAFINIL 100 MG TABLET PO SCH (09:35)
[2021-05-28 16:00] VITALS: BP 109/62
[2021-05-28] MEDS: DIVALPROEX SODIUM 500 MG ER TABLET PO SCH (20:25)
[2021-05-28] MEDS: OLANZapine 10 MG RAPDIS TABLET PO SCH (20:26)
[2021-05-28] MEDS: HALOPERIDOL 10 MG TABLET PO SCH (20:26)
[2021-05-28] MEDS: MELATONIN 5 MG TABLET PO SCH (20:26)
[2021-05-29] MEDS: NALTREXONE HCL 50 MG TABLET PO SCH (08:33)
[2021-05-29] MEDS: NICOTINE 14 MG/24 HOUR PATCH TD SCH (08:33)
[2021-05-29] MEDS: BuPROPion HCL XL 150 MG ER TABLET PO SCH (08:33)
[2021-05-29] MEDS: MULTIVITAMINS WITH MINERALS, THERAPEUTIC TABLET PO SCH (08:33)
[2021-05-29] MEDS: GABAPENTIN 300 MG CAPSULE PO SCH ×4 (08:33→21:01)
[2021-05-29] MEDS: OMEGA-3/DHA/EPA/FISH OIL 1,000 MG CAPSULE PO SCH (08:33)
[2021-05-29] MEDS: MODAFINIL 100 MG TABLET PO SCH (08:33)
[2021-05-29 09:30] VITALS: BP 98/56
[2021-05-29 16:09] VITALS: BP 92/60
[2021-05-29 20:00] VITALS: BP 102/64
[2021-05-29] MEDS: DIVALPROEX SODIUM 500 MG ER TABLET PO SCH (21:00)
[2021-05-29] MEDS: HALOPERIDOL 10 MG TABLET PO SCH (21:01)
[2021-05-29] MEDS: MELATONIN 5 MG TABLET PO SCH (21:01)
[2021-05-29] MEDS: OLANZapine 10 MG RAPDIS TABLET PO SCH (21:01)
[2021-05-30 03:40] VITALS: BP 108/67
[2021-05-30] MEDS: LORazepam 2 MG TABLET PO PRN (03:45)
[2021-05-30] MEDS: MULTIVITAMINS WITH MINERALS, THERAPEUTIC TABLET PO SCH (08:51)
[2021-05-30] MEDS: BuPROPion HCL XL 150 MG ER TABLET PO SCH (08:51)
[2021-05-30] MEDS: MODAFINIL 100 MG TABLET PO SCH (08:51)
[2021-05-30] MEDS: OMEGA-3/DHA/EPA/FISH OIL 1,000 MG CAPSULE PO SCH (08:51)
[2021-05-30] MEDS: GABAPENTIN 300 MG CAPSULE PO SCH ×4 (08:51→20:55)
[2021-05-30] MEDS: NALTREXONE HCL 50 MG TABLET PO SCH (08:51)
[2021-05-30] MEDS: NICOTINE 14 MG/24 HOUR PATCH TD SCH (09:00)
[2021-05-30 10:34] VITALS: BP 97/65
[2021-05-30 11:40] VITALS: BP 97/65
[2021-05-30 17:35] VITALS: BP 99/69
[2021-05-30] MEDS: MELATONIN 5 MG TABLET PO SCH (20:55)
[2021-05-30] MEDS: DIVALPROEX SODIUM 500 MG ER TABLET PO SCH (20:55)
[2021-05-30] MEDS: HALOPERIDOL 10 MG TABLET PO SCH (20:55)
[2021-05-30] MEDS: OLANZapine 10 MG RAPDIS TABLET PO SCH (20:55)
[2021-05-31 08:15] VITALS: BP 101/68
[2021-05-31] MEDS: NICOTINE 14 MG/24 HOUR PATCH TD SCH ×2 (09:00→09:04)
[2021-05-31] MEDS: MODAFINIL 100 MG TABLET PO SCH (09:04)
[2021-05-31] MEDS: MULTIVITAMINS WITH MINERALS, THERAPEUTIC TABLET PO SCH (09:04)
[2021-05-31] MEDS: BuPROPion HCL XL 150 MG ER TABLET PO SCH (09:05)
[2021-05-31] MEDS: GABAPENTIN 300 MG CAPSULE PO SCH ×4 (09:05→20:14)
[2021-05-31] MEDS: NALTREXONE HCL 50 MG TABLET PO SCH (09:05)
[2021-05-31] MEDS: OMEGA-3/DHA/EPA/FISH OIL 1,000 MG CAPSULE PO SCH (09:06)
[2021-05-31 16:40] VITALS: BP 92/65
[2021-05-31] MEDS: MELATONIN 5 MG TABLET PO SCH (20:14)
[2021-05-31] MEDS: DIVALPROEX SODIUM 500 MG ER TABLET PO SCH (20:14)
[2021-05-31] MEDS: OLANZapine 10 MG RAPDIS TABLET PO SCH (20:14)
[2021-05-31] MEDS: HALOPERIDOL 10 MG TABLET PO SCH (20:14)
[2021-06-01 08:27] VITALS: BP 113/71
[2021-06-01] MEDS: OMEGA-3/DHA/EPA/FISH OIL 1,000 MG CAPSULE PO SCH (08:55)
[2021-06-01] MEDS: MODAFINIL 100 MG TABLET PO SCH (08:56)
[2021-06-01] MEDS: BuPROPion HCL XL 150 MG ER TABLET PO SCH (08:56)
[2021-06-01] MEDS: NALTREXONE HCL 50 MG TABLET PO SCH (08:57)
[2021-06-01] MEDS: MULTIVITAMINS WITH MINERALS, THERAPEUTIC TABLET PO SCH (08:57)
[2021-06-01] MEDS: NICOTINE 14 MG/24 HOUR PATCH TD SCH (08:57)
[2021-06-01] MEDS: GABAPENTIN 300 MG CAPSULE PO SCH ×4 (08:57→20:01)
[2021-06-01 16:00] VITALS: BP 109/77
[2021-06-01] MEDS: HALOPERIDOL 10 MG TABLET PO SCH (20:01)
[2021-06-01] MEDS: MELATONIN 5 MG TABLET PO SCH (20:01)
[2021-06-01] MEDS: DIVALPROEX SODIUM 500 MG ER TABLET PO SCH (20:01)
[2021-06-01] MEDS: OLANZapine 10 MG RAPDIS TABLET PO SCH (20:01)
[2021-06-02] MEDS: OMEGA-3/DHA/EPA/FISH OIL 1,000 MG CAPSULE PO SCH (08:11)
[2021-06-02] MEDS: NALTREXONE HCL 50 MG TABLET PO SCH (08:11)
[2021-06-02] MEDS: MODAFINIL 100 MG TABLET PO SCH (08:12)
[2021-06-02] MEDS: GABAPENTIN 300 MG CAPSULE PO SCH ×4 (08:12→20:06)
[2021-06-02] MEDS: BuPROPion HCL XL 150 MG ER TABLET PO SCH (08:12)
[2021-06-02] MEDS: MULTIVITAMINS WITH MINERALS, THERAPEUTIC TABLET PO SCH (08:13)
[2021-06-02] MEDS: NICOTINE 14 MG/24 HOUR PATCH TD SCH (09:00)
[2021-06-02 09:23] VITALS: BP 101/73
[2021-06-02 14:16] LABS: COVID AG,FIA SOURCE NASAL SWAB
[2021-06-02 16:09] VITALS: BP 109/73
[2021-06-02] MEDS: HALOPERIDOL 10 MG TABLET PO SCH (20:06)
[2021-06-02] MEDS: OLANZapine 10 MG RAPDIS TABLET PO SCH (20:06)
[2021-06-02] MEDS: MELATONIN 5 MG TABLET PO SCH (20:06)
[2021-06-02] MEDS: DIVALPROEX SODIUM 500 MG ER TABLET PO SCH (20:06)
[2021-06-03 05:11] VITALS: BP 113/66
[2021-06-03 08:45] VITALS: BP 104/73
[2021-06-03] MEDS: NICOTINE 14 MG/24 HOUR PATCH TD SCH (09:00)
[2021-06-03] MEDS: BuPROPion HCL XL 150 MG ER TABLET PO SCH (09:25)
[2021-06-03] MEDS: MODAFINIL 100 MG TABLET PO SCH (09:26)
[2021-06-03] MEDS: NALTREXONE HCL 50 MG TABLET PO SCH (09:26)
[2021-06-03] MEDS: GABAPENTIN 300 MG CAPSULE PO SCH ×4 (09:26→20:09)
[2021-06-03] MEDS: OMEGA-3/DHA/EPA/FISH OIL 1,000 MG CAPSULE PO SCH (09:26)
[2021-06-03] MEDS: MULTIVITAMINS WITH MINERALS, THERAPEUTIC TABLET PO SCH (09:26)
[2021-06-03] MEDS ORDERED: BUPR-49 PO (13:35)
[2021-06-03] MEDS ORDERED: OMEG-135 PO (13:35)
[2021-06-03] MEDS ORDERED: GABA-1181 PO (13:35)
[2021-06-03] MEDS ORDERED: OLAN10TA26 PO (13:35)
[2021-06-03] MEDS ORDERED: MELA5TAB3 PO (13:35)
[2021-06-03] MEDS ORDERED: NALT50TA PO (13:35)
[2021-06-03] MEDS ORDERED: DIVA-80 PO (13:35)
[2021-06-03 16:44] VITALS: BP 105/65
[2021-06-03] MEDS: HALOPERIDOL 10 MG TABLET PO SCH (20:08)
[2021-06-03] MEDS: DIVALPROEX SODIUM 500 MG ER TABLET PO SCH (20:09)
[2021-06-03] MEDS: MELATONIN 5 MG TABLET PO SCH (20:09)
[2021-06-03] MEDS: OLANZapine 10 MG RAPDIS TABLET PO SCH (20:09)
[2021-06-04 08:00] VITALS: BP 90/58
[2021-06-04] MEDS: OMEGA-3/DHA/EPA/FISH OIL 1,000 MG CAPSULE PO SCH (08:36)
[2021-06-04] MEDS: BuPROPion HCL XL 150 MG ER TABLET PO SCH ×2 (08:36→09:00)
[2021-06-04] MEDS: NALTREXONE HCL 50 MG TABLET PO SCH ×2 (08:37→09:00)
[2021-06-04] MEDS: MODAFINIL 100 MG TABLET PO SCH ×2 (08:37→09:00)
[2021-06-04] MEDS: MULTIVITAMINS WITH MINERALS, THERAPEUTIC TABLET PO SCH (08:37)
[2021-06-04] MEDS: GABAPENTIN 300 MG CAPSULE PO SCH ×3 (08:37→12:38)
[2021-06-04] MEDS: NICOTINE 14 MG/24 HOUR PATCH TD SCH (08:38)
== END 2021-06-04 13:27 | disposition home or self-care (01) | DRG 750 ==
LOC: 3EI 17:45
PROVIDERS: ADMIT Psychiatry & Neurology Psychiatry; ATTEND Psychiatry & Neurology Psychiatry
DX: F25.1 Schizoaffective disorder, depressive type (principal); G93.40 Encephalopathy, unspecified; D64.9 Anemia, unspecified; F11.10 Opioid abuse, uncomplicated; F15.90 Other stimulant use, unspecified, uncomplicated; J44.9 Chronic obstructive pulmonary disease, unspecified; K51.90 Ulcerative colitis, unspecified, without complications; Z55.9 Problems related to education and literacy, unspecified; Z59.9 Problem related to housing and economic circumstances, unspecified; Z65.3 Problems related to other legal circumstances; Z87.891 Personal history of nicotine dependence; Z20.822 Contact with and (suspected) exposure to COVID-19
CPT/HCPCS: 80053; 80061; 80164; 80307; 81003; 83036; 84439; 84443; 85025; 86592; 87081; A9575